=== PATIENT | female | born 1995 | race Caucasian/White ===

== ENCOUNTER 2019-02-25 23:35 | Emergency (ER) | payer MEDICAID ==
[~2019-02-25] VITALS: Ht 152.4 cm; Wt 79.5 kg
[~2019-02-25 23:35] MED LIST: ALBU8HFA PO
[2019-02-25] MEDS ORDERED: ipratropium/albuterol 3ml nebule NEB ONE (23:40)
[2019-02-26] MEDS ORDERED: dexamethasone sod phosphate 10mg/ml inj IV STA (01:07)
[2019-02-26] MEDS ORDERED: ipratropium/albuterol 3ml nebule NEB ONE (01:10)
[2019-02-26 01:19] VITALS: BP 147/85
[2019-02-26] MEDS ORDERED: ALBU8HFA PO (02:45)
== END 2019-02-26 02:55 | disposition home or self-care (01) ==
LOC: ER 23:36
DX: J45.909 Unspecified asthma, uncomplicated (principal); F17.210 Nicotine dependence, cigarettes, uncomplicated; F12.90 Cannabis use, unspecified, uncomplicated; Z79.899 Other long term (current) drug therapy
CPT/HCPCS: 93005; 94640; 94760; 96374; 99284; J1100

== ENCOUNTER 2020-09-15 18:36 | Emergency (ER) | payer MEDICAID ==
[~2020-09-15] VITALS: Ht 152.4 cm; Wt 81.8 kg
[2020-09-15] MEDS ORDERED: predniSONE 20 mg tablet PO ONE (18:55)
[2020-09-15] MEDS ORDERED: ipratropium/albuterol 3ml nebule NEB ONE (18:55)
[2020-09-15] MEDS ORDERED: prednisone 10mg tablet PO SCH (18:55)
[2020-09-15] MEDS ORDERED: PRED20TA PO (19:29)
[2020-09-15] MEDS ORDERED: ALBU8HFA PO (19:29)
--- NOTE | 2020-09-15 19:32 | NUR ---
Pt stated she is feeling much better and breathing easier.
[2020-09-15 19:42] VITALS: BP 104/80
== END 2020-09-15 19:44 | disposition home or self-care (01) ==
LOC: ER 18:36
DX: J45.901 Unspecified asthma with (acute) exacerbation (principal); F17.200 Nicotine dependence, unspecified, uncomplicated; F12.90 Cannabis use, unspecified, uncomplicated; Z72.89 Other problems related to lifestyle; Z79.899 Other long term (current) drug therapy
CPT/HCPCS: 94640; 99283; J7512; 94760

== ENCOUNTER 2023-01-14 10:38 | Emergency (ER) | payer MEDICAID ==
[~2023-01-14] VITALS: Ht 152.4 cm; Wt 84.0 kg
[2023-01-14 10:45] VITALS: BP 133/83
== END 2023-01-14 13:04 | disposition left against medical advice (07) ==
LOC: ER 10:38
DX: K08.89 Other specified disorders of teeth and supporting structures (principal); Z53.21 Procedure and treatment not carried out due to patient leaving prior to being seen by health care provider
CPT/HCPCS: 99281